=== PATIENT | female | born 1980 | race African-American/Black ===

== ENCOUNTER → 2016-07-27 | Outpatient (CLI) | payer MEDICAID ==
[~2016-07-27] MED LIST: IBUP800T23 PO; PRENTAB55 PO; TYLE325T5 PO
== END ==
LOC: M OUTALCOH 07:54
PROVIDERS: ATTEND Psychiatry & Neurology Psychiatry
DX: F14.20 Cocaine dependence, uncomplicated (principal)

== ENCOUNTER → 2016-08-03 | Outpatient (RCR) | payer MEDICAID | END | disposition home or self-care (01) | LOC: M OUTALCOH 08-02 09:20 | PROVIDERS: ATTEND Psychiatry & Neurology Psychiatry | DX: F14.20 Cocaine dependence, uncomplicated (principal); Z72.0 Tobacco use ==

== ENCOUNTER 2016-09-28 13:50 | Emergency (ER) | payer MEDICAID, OTHER ==
[~2016-09-28] VITALS: Ht 160 cm; Wt 68.0 kg
[2016-09-28 14:10] VITALS: BP 136/77
[2016-09-28] MEDS ORDERED: MEDR4PAK PO (14:44)
== END 2016-09-28 14:59 | disposition home or self-care (01) ==
LOC: M ED 14:48
DX: M19.041 Primary osteoarthritis, right hand (principal); M19.042 Primary osteoarthritis, left hand; F17.210 Nicotine dependence, cigarettes, uncomplicated

== ENCOUNTER → 2016-10-13 | Outpatient (CLI) | payer OTHER ==
[~2016-10-13] MED LIST changes: +MEDR4PAK PO
[2016-10-13 10:12] LABS: BASO % 0.4 % (0.0-1.0); EOS # 0.1 K/mm3 (0.0-0.50); EOS % 3.3 % (0.0-3.0); LARGE UNSTAINED CELL # 0.1 K/mm3 (0.0-0.4); LARGE UNSTAINED CELL % 3.2 % (0.0-4.0); LYMPH # 2.2 K/mm3 (1.5-4.5); LYMPH % 48.3 % (24.0-44.0); MEAN CORPUSCULAR HEMOGLOBIN 29.1 pg (27.0-33.0); MEAN CORPUSCULAR HGB CONC 31.8 g/dl (32.0-36.5); MEAN CORPUSCULAR VOLUME 91.5 fl (80.0-96.0); MONO # 0.3 K/mm3 (0.0-0.8); MONO % 7.1 % (0.0-5.0); NEUTROPHILS # 1.6 K/mm3 (1.8-7.7); NEUTROPHILS % 37.7 % (36.0-66.0); PLATELET COUNT, AUTOMATED 235 k/mm3 (150-450); RED CELL DISTRIBUTION WIDTH 15.9 % (11.5-14.5); WHITE BLOOD COUNT 4.2 K/mm3 (4.0-10.0)
[2016-10-13 10:47] LABS: ALBUMIN 3.5 GM/DL (3.2-5.2); ALBUMIN/GLOBULIN RATIO 1.03 (1.00-1.93); ALKALINE PHOSPHATASE 121 U/L (45-117); ALT/SGPT 20 U/L (12-78); ANION GAP 7 MEQ/L (8-16); AST/SGOT 14 U/L (15-37); BILIRUBIN,TOTAL 0.4 MG/DL (0.2-1.0); BLOOD UREA NITROGEN 12 MG/DL (7-18); CALCIUM LEVEL 8.2 MG/DL (8.5-10.1); CARBON DIOXIDE LEVEL 26 MEQ/L (21-32); CHLORIDE LEVEL 107 MEQ/L (98-107); CHOLESTEROL LEVEL 157 MG/DL (<200); CREATININE FOR GFR 0.47 MG/DL (0.55-1.02); FREE T4 1.96 NG/DL (0.76-1.46); GLOMERULAR FILTRATION RATE > 60.0 (>60); GLUCOSE, FASTING 94 MG/DL (70-105); PERCENT SATURATION 10.8 % (13.2-37.4); POTASSIUM SERUM 4.4 MEQ/L (3.5-5.1); SODIUM LEVEL 140 MEQ/L (136-145); TOTAL IRON BINDING CAPACITY 434 UG/DL (250-450); TOTAL PROTEIN 6.9 GM/DL (6.4-8.2); TRIGLYCERIDES LEVEL 32 MG/DL (<150)
[2016-10-13 11:34] LABS: ERYTHROCYTE SEDIMENTATION RATE 9 mm/hr (0-20)
== END ==
LOC: M LAB 09:24
PROVIDERS: ATTEND Nurse Practitioner Family
DX: Z00.00 Encounter for general adult medical examination without abnormal findings (principal); D50.9 Iron deficiency anemia, unspecified; M25.50 Pain in unspecified joint; F41.8 Other specified anxiety disorders; Z13.220 Encounter for screening for lipoid disorders

== ENCOUNTER → 2016-10-21 | Outpatient (CLI) | payer OTHER ==
--- NOTE | 2016-10-22 11:12 | REP ---
Thyroid uptake and scan: History: Hyperthyroidism. Technique: 383.0 microcuries of I-123 sodium iodine is ingested and 2 and 24 uptake values are acquired along with functional images. Findings: The 2 and the 24 uptake values are somewhat elevated. At 2 hours, the patient's uptake is 15.06% (6-12%). At 24 hours, the patients thyroid uptake is 43.26% (25-35%). Functional thyroid images demonstrate homogeneous uptake in symmetrically enlarged thyroid lobes. No cold or warm lesion is seen. The left lobe is a little larger than the right. Impression: Findings compatible with Graves disease. Signed by Isaiah Arceo MD 10/22/2016 12:49 P
== END ==
LOC: M RAD 09:40
PROVIDERS: ATTEND Nurse Practitioner Family
DX: E05.90 Thyrotoxicosis, unspecified without thyrotoxic crisis or storm (principal)

== ENCOUNTER → 2016-12-17 | Outpatient (CLI) | payer OTHER, MEDICAID ==
[2016-12-17 10:50] LABS: BASO % 0.5 % (0.0-1.0); EOS # 0.1 K/mm3 (0.0-0.50); EOS % 3.5 % (0.0-3.0); LARGE UNSTAINED CELL # 0.1 K/mm3 (0.0-0.4); LARGE UNSTAINED CELL % 3.7 % (0.0-4.0); LYMPH # 1.6 K/mm3 (1.5-4.5); LYMPH % 48.4 % (24.0-44.0); MEAN CORPUSCULAR HEMOGLOBIN 29.2 pg (27.0-33.0); MEAN CORPUSCULAR HGB CONC 31.8 g/dl (32.0-36.5); MONO # 0.1 K/mm3 (0.0-0.8); MONO % 4.3 % (0.0-5.0); NEUTROPHILS # 1.3 K/mm3 (1.8-7.7); NEUTROPHILS % 39.5 % (36.0-66.0); PLATELET COUNT, AUTOMATED 230 k/mm3 (150-450); RED CELL DISTRIBUTION WIDTH 14.7 % (11.5-14.5); WHITE BLOOD COUNT 3.3 K/mm3 (4.0-10.0)
[2016-12-17 11:09] LABS: FREE T4 1.44 NG/DL (0.76-1.46)
== END ==
LOC: M LAB 09:41
PROVIDERS: ATTEND Internal Medicine Endocrinology, Diabetes & Metabolism
DX: E05.00 Thyrotoxicosis with diffuse goiter without thyrotoxic crisis or storm (principal)

== ENCOUNTER → 2016-12-22 | Outpatient (REF) ==
--- NOTE | 2016-12-23 02:55 | REP ---
Clinical: Pain and disability. Technique: AP, lateral, bilateral oblique views right hand. Findings: The osseous structures and joint spaces are intact and normal for age. There is no evidence for acute fracture or dislocation. Surrounding soft tissues are unremarkable. No subcutaneous emphysema or radiodense foreign body. Impression: Normal, age-appropriate examination. No significant arthritic degenerative changes appreciated by radiographic evaluation. Signed by Jarett Julian MD 12/23/2016 02:47 A
== END ==
LOC: M SMT 11:29
PROVIDERS: ATTEND Internal Medicine
DX: Z02.71 Encounter for disability determination (principal); M54.5 Low back pain

== ENCOUNTER 2017-01-22 13:01 | Emergency (ER) | payer MEDICAID, OTHER ==
[~2017-01-22] VITALS: Ht 160 cm; Wt 76.7 kg
[~2017-01-22 13:01] MED LIST changes: +IBUP1TAB7 PO; -IBUP800T23 PO
[2017-01-22 13:02] VITALS: BP 123/74
[2017-01-22] MEDS ORDERED: METH10TA PO (13:10)
[2017-01-22] MEDS ORDERED: ULTR50TA8 PO (13:53)
[2017-01-22] MEDS ORDERED: PRED20TA PO (13:53)
== END 2017-01-22 14:01 | disposition home or self-care (01) ==
LOC: M ED 13:01
DX: M13.0 Polyarthritis, unspecified (principal); F17.210 Nicotine dependence, cigarettes, uncomplicated

== ENCOUNTER → 2017-05-19 | Outpatient (REF) | payer OTHER ==
[~2017-05-19] MED LIST changes: +METH10TA PO; +PRED20TA PO; +ULTR50TA8 PO
[2017-05-19 18:33] LABS: ALBUMIN 3.7 GM/DL (3.2-5.2); ALKALINE PHOSPHATASE 118 U/L (45-117); ALT/SGPT 23 U/L (12-78); ANION GAP 8 MEQ/L (8-16); AST/SGOT 18 U/L (7-37); BILIRUBIN,TOTAL 0.2 MG/DL (0.2-1.0); BLOOD UREA NITROGEN 7 MG/DL (7-18); CALCIUM LEVEL 8.3 MG/DL (8.5-10.1); CARBON DIOXIDE LEVEL 27 MEQ/L (21-32); CHLORIDE LEVEL 105 MEQ/L (98-107); CREATININE FOR GFR 0.66 MG/DL (0.55-1.02); GLOMERULAR FILTRATION RATE > 60.0 (>60); GLUCOSE, FASTING 85 MG/DL (70-105); SODIUM LEVEL 140 MEQ/L (136-145); TOTAL PROTEIN 7.4 GM/DL (6.4-8.2)
== END ==
LOC: M SFHCPLAZ 15:50
PROVIDERS: ATTEND Nurse Practitioner Family
DX: F41.8 Other specified anxiety disorders (principal); I10 Essential (primary) hypertension

== ENCOUNTER 2017-08-01 06:36 | Emergency (ER) | payer OTHER, MEDICAID ==
[2017-08-01 07:51] LABS: KETONE, URINE AUTO RFX TRACE mg/dL (NEGATIVE); MUCUS, URINE RFX MODERATE (NEGATIVE); NITRITE, URINE AUTO RFX NEGATIVE (NEGATIVE); RBC, URINE AUTO RFX 136 /HPF (0-3); SPECIFIC GRAVITY UR AUTO RFX 1.031 (1.002-1.035); SQUAM EPITHELIAL CELL UR AURFX 9 /HPF (0-6)
[2017-08-01 07:52] LABS: LEUKOCYTE ESTERASE UR AUTO RFX 2+ (NEGATIVE); WBC, URINE AUTO RFX 70 /HPF (0-3)
== END 2017-08-01 08:27 | disposition home or self-care (01) ==
LOC: M ED 06:36
DX: N30.90 Cystitis, unspecified without hematuria (principal); J06.9 Acute upper respiratory infection, unspecified; J45.909 Unspecified asthma, uncomplicated; I10 Essential (primary) hypertension; F41.9 Anxiety disorder, unspecified; Z79.899 Other long term (current) drug therapy
CPT/HCPCS: 81001

== ENCOUNTER 2017-08-08 10:27 | Emergency (ER) | payer OTHER ==
[2017-08-08] MEDS: PANTOPRAZOLE 40MG TAB (PROTONIX) PO (12:15)
[2017-08-08] MEDS: GI COCKTAIL 50ML BTL(HYOSCYAMINE/MAALOX/LIDOCAINE VISCOUS)(1:3:1) PO (12:15)
[2017-08-08 13:08] LABS: INFLUENZA A AMPLIFICATION NEGATIVE (NEGATIVE); INFLUENZA B AMPLIFICATION NEGATIVE (NEGATIVE)
== END 2017-08-08 14:56 | disposition home or self-care (01) ==
LOC: M ED 10:27
DX: K29.00 Acute gastritis without bleeding (principal); I10 Essential (primary) hypertension; J45.909 Unspecified asthma, uncomplicated; E03.9 Hypothyroidism, unspecified; F41.9 Anxiety disorder, unspecified; Z79.899 Other long term (current) drug therapy; F17.210 Nicotine dependence, cigarettes, uncomplicated
CPT/HCPCS: 87502

== ENCOUNTER → 2017-08-23 | Outpatient (REF) | payer OTHER, MEDICAID ==
[2017-08-23 16:06] LABS: TOTAL T3 65.6 NG/DL (60.0-181.0)
[2017-08-23 16:09] LABS: FREE T4 0.19 NG/DL (0.76-1.46)
== END ==
LOC: M LABDRAWP 15:32
DX: E05.00 Thyrotoxicosis with diffuse goiter without thyrotoxic crisis or storm (principal)
CPT/HCPCS: 84443

== ENCOUNTER → 2017-12-14 | Outpatient (REF) | payer MEDICARE ==
[2017-12-14 11:33] LABS: HEMATOCRIT 32.1 % (36.0-47.0); HEMOGLOBIN 10.2 g/dl (12.0-15.5); MEAN CORPUSCULAR HEMOGLOBIN 29.4 pg (27.0-33.0); MEAN CORPUSCULAR HGB CONC 31.8 g/dl (32.0-36.5); MEAN CORPUSCULAR VOLUME 92.5 fl (80.0-96.0); PLATELET COUNT, AUTOMATED 199 10^3/uL (150-450); RED BLOOD COUNT 3.47 10^6/uL (4.00-5.40); RED CELL DISTRIBUTION WIDTH 17.9 % (11.5-14.5); WHITE BLOOD COUNT 4.7 10^3/uL (4.0-10.0)
[2017-12-14 12:10] LABS: ALBUMIN 3.8 GM/DL (3.2-5.2); ALBUMIN/GLOBULIN RATIO 1.09 (1.00-1.93); ALKALINE PHOSPHATASE 78 U/L (45-117); ALT/SGPT 17 U/L (12-78); ANION GAP 9 MEQ/L (8-16); AST/SGOT 17 U/L (7-37); BILIRUBIN,TOTAL 0.2 MG/DL (0.2-1.0); BLOOD UREA NITROGEN 8 MG/DL (7-18); CALCIUM LEVEL 8.5 MG/DL (8.5-10.1); CARBON DIOXIDE LEVEL 26 MEQ/L (21-32); CHLORIDE LEVEL 107 MEQ/L (98-107); CREATININE FOR GFR 0.73 MG/DL (0.55-1.30); GLOMERULAR FILTRATION RATE > 60.0 (>60); GLUCOSE, FASTING 101 MG/DL (70-100); IRON (FE) 31 UG/DL (50-170); PERCENT SATURATION 7.3 % (13.2-45.0); POTASSIUM SERUM 4.3 MEQ/L (3.5-5.1); SODIUM LEVEL 142 MEQ/L (136-145); TOTAL IRON BINDING CAPACITY 427 UG/DL (250-450); TOTAL PROTEIN 7.3 GM/DL (6.4-8.2)
[2017-12-14 18:55] LABS: TOTAL T3 101.5 NG/DL (60.0-181.0)
[2017-12-16 00:07] LABS: THYROID STIMULATING IMMUNOGLOB 0.76 IU/L (0.00-0.55)
== END ==
LOC: M SFHCPLAZ 09:25
DX: D50.9 Iron deficiency anemia, unspecified (principal); I10 Essential (primary) hypertension; E05.00 Thyrotoxicosis with diffuse goiter without thyrotoxic crisis or storm
CPT/HCPCS: 83550

== ENCOUNTER → 2018-01-06 | Outpatient (CLI) | payer MEDICARE ==
[2018-01-06 10:39] LABS: FREE T4 0.72 NG/DL (0.76-1.46)
[2018-01-06 10:59] LABS: TOTAL T3 99.3 NG/DL (60.0-181.0)
== END ==
LOC: M LAB 09:09
DX: E05.00 Thyrotoxicosis with diffuse goiter without thyrotoxic crisis or storm (principal)
CPT/HCPCS: 84443

== ENCOUNTER 2018-02-04 11:34 | Emergency (ER) | payer OTHER, MEDICARE ==
[2018-02-04] MEDS: KETOROLAC 60 MG/2 ML VIAL (J1885) IM (13:11)
[2018-02-04 13:19] LABS: BASO % 0.5 % (0.0-1.0); EOS # 0.2 10^3/uL (0.0-0.50); EOS % 3.1 % (0.0-3.0); HEMATOCRIT 33.9 % (36.0-47.0); HEMOGLOBIN 10.7 g/dl (12.0-15.5); IMMATURE GRANULOCYTE % 0.2 % (0-3.0); LYMPH # 2.6 10^3/uL (1.5-4.5); LYMPH % 46.1 % (24.0-44.0); MEAN CORPUSCULAR HEMOGLOBIN 29.5 pg (27.0-33.0); MEAN CORPUSCULAR HGB CONC 31.6 g/dl (32.0-36.5); MEAN CORPUSCULAR VOLUME 93.4 fl (80.0-96.0); MONO # 0.5 10^3/uL (0.0-0.8); MONO % 8.1 % (0.0-5.0); NEUTROPHILS # 2.3 10^3/uL (1.8-7.7); PLATELET COUNT, AUTOMATED 257 10^3/uL (150-450); RED BLOOD COUNT 3.63 10^6/uL (4.00-5.40); WHITE BLOOD COUNT 5.5 10^3/uL (4.0-10.0)
[2018-02-04 13:33] LABS: CONTROL LINE HCG INT CTR LINE PRESENT; HCG, SERUM QUALITATIVE NEGATIVE (NEGATIVE)
[2018-02-04 13:51] LABS: ANION GAP 6 MEQ/L (8-16); BLOOD UREA NITROGEN 8 MG/DL (7-18); CALCIUM LEVEL 8.6 MG/DL (8.5-10.1); CARBON DIOXIDE LEVEL 28 MEQ/L (21-32); CHLORIDE LEVEL 108 MEQ/L (98-107); CREATININE FOR GFR 0.62 MG/DL (0.55-1.30); GLOMERULAR FILTRATION RATE > 60.0 (>60); GLUCOSE, FASTING 86 MG/DL (70-100); POTASSIUM SERUM 3.8 MEQ/L (3.5-5.1); SODIUM LEVEL 142 MEQ/L (136-145); THYROXINE (T4) 8.8 UG/DL (4.5-12.0)
[2018-02-04 14:06] LABS: ALBUMIN 4.1 GM/DL (3.2-5.2); ALBUMIN/GLOBULIN RATIO 1.08 (1.00-1.93); ALKALINE PHOSPHATASE 86 U/L (45-117); ALT/SGPT 17 U/L (12-78); AST/SGOT 17 U/L (7-37); BILIRUBIN,DIRECT 0.1 MG/DL (0.0-0.2); BILIRUBIN,TOTAL 0.4 MG/DL (0.2-1.0); TOTAL PROTEIN 7.9 GM/DL (6.4-8.2)
== END 2018-02-04 14:37 | disposition home or self-care (01) ==
LOC: M ED 11:34
DX: R51 Headache (principal); K59.00 Constipation, unspecified; D64.9 Anemia, unspecified; I10 Essential (primary) hypertension; G43.909 Migraine, unspecified, not intractable, without status migrainosus; K21.9 Gastro-esophageal reflux disease without esophagitis; E05.00 Thyrotoxicosis with diffuse goiter without thyrotoxic crisis or storm; H26.9 Unspecified cataract; Z79.899 Other long term (current) drug therapy; F17.210 Nicotine dependence, cigarettes, uncomplicated; F14.21 Cocaine dependence, in remission
CPT/HCPCS: J1885

== ENCOUNTER → 2018-02-22 | Outpatient (REF) | payer OTHER ==
[2018-02-22 13:22] LABS: HEMATOCRIT 31.7 % (36.0-47.0); HEMOGLOBIN 10.1 g/dl (12.0-15.5); MEAN CORPUSCULAR HGB CONC 31.9 g/dl (32.0-36.5); MEAN CORPUSCULAR VOLUME 94.1 fl (80.0-96.0); PLATELET COUNT, AUTOMATED 271 10^3/uL (150-450); RED BLOOD COUNT 3.37 10^6/uL (4.00-5.40)
[2018-02-22 13:49] LABS: FOLATE 9.8 NG/ML (>5.4); VITAMIN B12 LEVEL 118 PG/ML (247-911)
[2018-02-22 13:54] LABS: FERRITIN 8 NG/ML (8-252); IRON (FE) 33 UG/DL (50-170); PERCENT SATURATION 6.9 % (13.2-45.0); TOTAL IRON BINDING CAPACITY 475 UG/DL (250-450)
== END ==
LOC: M SFHCPLAZ 11:47
DX: D64.9 Anemia, unspecified (principal)
CPT/HCPCS: 82746

== ENCOUNTER 2018-03-04 08:11 | Emergency (ER) | payer OTHER ==
[2018-03-04] MEDS: KETOROLAC 30 MG/ML VIAL (J1885) IV (09:21)
[2018-03-04] MEDS: NS 1,000 ML IV (09:21)
[2018-03-04] MEDS: METOCLOPRAMIDE INJ 10MG/2ML VIAL (J2765) IV (09:21)
[2018-03-04 09:35] LABS: CONTROL LINE HCG INT CTR LINE PRESENT; HCG, SERUM QUALITATIVE NEGATIVE (NEGATIVE)
[2018-03-04 09:41] LABS: ALBUMIN 3.9 GM/DL (3.2-5.2); ALBUMIN/GLOBULIN RATIO 0.95 (1.00-1.93); ALKALINE PHOSPHATASE 88 U/L (45-117); ALT/SGPT 15 U/L (12-78); ANION GAP 10 MEQ/L (8-16); AST/SGOT 13 U/L (7-37); BILIRUBIN,DIRECT 0.2 MG/DL (0.0-0.2); BILIRUBIN,TOTAL 0.8 MG/DL (0.2-1.0); BLOOD UREA NITROGEN 7 MG/DL (7-18); CALCIUM LEVEL 8.7 MG/DL (8.5-10.1); CARBON DIOXIDE LEVEL 27 MEQ/L (21-32); CHLORIDE LEVEL 105 MEQ/L (98-107); CREATININE FOR GFR 0.77 MG/DL (0.55-1.30); GLOMERULAR FILTRATION RATE > 60.0 (>60); GLUCOSE, FASTING 83 MG/DL (70-100); LIPASE 53 U/L (73-393); POTASSIUM SERUM 3.4 MEQ/L (3.5-5.1); SODIUM LEVEL 142 MEQ/L (136-145)
[2018-03-04 09:52] LABS: BASO % 0.2 % (0.0-1.0); EOS # 0.3 10^3/uL (0.0-0.50); EOS % 2.7 % (0.0-3.0); HEMATOCRIT 31.7 % (36.0-47.0); HEMOGLOBIN 10.3 g/dl (12.0-15.5); IMMATURE GRANULOCYTE % 0.2 % (0-3.0); LYMPH # 2.3 10^3/uL (1.5-4.5); LYMPH % 23.2 % (24.0-44.0); MEAN CORPUSCULAR HEMOGLOBIN 30.6 pg (27.0-33.0); MEAN CORPUSCULAR HGB CONC 32.5 g/dl (32.0-36.5); MEAN CORPUSCULAR VOLUME 94.1 fl (80.0-96.0); MONO # 0.5 10^3/uL (0.0-0.8); MONO % 4.6 % (0.0-5.0); NEUTROPHILS # 6.7 10^3/uL (1.8-7.7); NEUTROPHILS % 69.1 % (36.0-66.0); PLATELET COUNT, AUTOMATED 294 10^3/uL (150-450); RED BLOOD COUNT 3.37 10^6/uL (4.00-5.40); RED CELL DISTRIBUTION WIDTH 19.9 % (11.5-14.5); WHITE BLOOD COUNT 9.7 10^3/uL (4.0-10.0)
[2018-03-04] MEDS ORDERED: ISOVUE-370 76% 100ML VIAL (Q9967) As Ordered (10:26)
[2018-03-04 10:31] LABS: KETONE, URINE AUTO RFX TRACE mg/dL (NEGATIVE); MUCUS, URINE RFX SMALL (NEGATIVE); NITRITE, URINE AUTO RFX NEGATIVE (NEGATIVE); RBC, URINE AUTO RFX 22 /HPF (0-3); SPECIFIC GRAVITY UR AUTO RFX 1.015 (1.002-1.035); SQUAM EPITHELIAL CELL UR AURFX 0 /HPF (0-6)
[2018-03-04 10:33] LABS: LEUKOCYTE ESTERASE UR AUTO RFX TRACE (NEGATIVE); WBC, URINE AUTO RFX 14 /HPF (0-3)
== END 2018-03-04 11:10 | disposition home or self-care (01) ==
LOC: M ED 08:11
DX: G43.909 Migraine, unspecified, not intractable, without status migrainosus (principal); R19.7 Diarrhea, unspecified; G89.29 Other chronic pain; R10.9 Unspecified abdominal pain; K76.0 Fatty (change of) liver, not elsewhere classified; I10 Essential (primary) hypertension; K21.9 Gastro-esophageal reflux disease without esophagitis; E05.90 Thyrotoxicosis, unspecified without thyrotoxic crisis or storm; F41.9 Anxiety disorder, unspecified; F32.9 Major depressive disorder, single episode, unspecified; Z72.0 Tobacco use; Z79.899 Other long term (current) drug therapy
CPT/HCPCS: Q9967